=== PATIENT | female | born 1970 | race Hispanic/Latino ===

== ENCOUNTER 2018-02-10 01:05 | Emergency (ER) | payer BC ==
[~2018-02-10] VITALS: Ht 160 cm; Wt 83.8 kg
[2018-02-10] MEDS ORDERED: ULTRAM50 MG PO (03:47)
[2018-02-10] MEDS ORDERED: ZOFRAN ODT4 MG PO (03:47)
[2018-02-10 04:39] VITALS: BP 119/80
== END 2018-02-10 04:40 | disposition home or self-care (01) ==
LOC: EME 01:05
DX: S00.03XA Contusion of scalp, initial encounter (principal); S06.9X9A Unspecified intracranial injury with loss of consciousness of unspecified duration, initial encounter; S50.02XA Contusion of left elbow, initial encounter; S70.01XA Contusion of right hip, initial encounter; S16.1XXA Strain of muscle, fascia and tendon at neck level, initial encounter; W10.9XXA Fall (on) (from) unspecified stairs and steps, initial encounter
CPT/HCPCS: 70450; 72125; 73080; 73502; 99281; 99284